=== PATIENT | male | born 1985 | race Caucasian/White ===

== ENCOUNTER 2019-03-07 19:36 | Emergency (ER) | payer MEDICAID, OTHER ==
[~2019-03-07] VITALS: Ht 170.2 cm; Wt 62.4 kg
[~2019-03-07 19:36] MED LIST: BACTDS PO; BEN50 PO; GENT5DRO28 LEFT EYE; HC1C30 TOP; HYDR-4011 PO; PRED20TA PO; TAMS-14 PO
[2019-03-07 19:44] VITALS: Ht 170.2 cm; Wt 62.4 kg
[2019-03-07] MEDS ORDERED: KETOROLAC 30 MG INJ IV STA (20:31)
[2019-03-07] MEDS ORDERED: morphine 2 MG INJ IV STA (20:31)
[2019-03-07] MEDS ORDERED: ONDANSETRON 4 MG INJ IV STA (20:31)
[2019-03-07 23:00] VITALS: BP 115/69; PULSE 82; RESP 18
== END 2019-03-07 23:00 | disposition home or self-care (01) ==
LOC: FTE 19:36
DX: N20.1 Calculus of ureter (principal)
CPT/HCPCS: 36415; 74176; 76870; 80053; 81003; 83690; 85025; 96374; 96375; J1885; J2270; J2405; Z7502